=== PATIENT | female | born 1995 | race Caucasian/White ===

== ENCOUNTER 2017-04-08 09:57 | Day surgery (SDC) | payer BC ==
[2017-04-05 14:31] VITALS: BMI 26.9
[2017-04-08 10:28] LABS: #Eosinphils 0.1 thou/uL (0.0-0.7); #Lymphocytes 2.6 thou/uL (1.20-3.40); #Monocytes 0.5 thou/uL (0.11-0.59); #Neutrophils 3.2 thou/uL (1.40-6.50); %Basophils 0.7 % (0.0-1.0); %Eosinophils 2.3 % (0.0-10.0); %Lymphocytes 40.3 % (21.0-51.0); Hematocrit 46.8 % (36.0-47.0); Mean Platelet Volume 7.7 fL (7.4-10.4); Red Blood Cell (RBC) Count 5.11 mill/uL (4.20-5.40); White Blood Cell (WBC) Count 6.5 thou/uL (4.8-10.8)
[2017-04-08] MEDS ORDERED: Midazolam HCl 2 mg/2 ml Vial ONE (11:40)
[2017-04-08] MEDS ORDERED: Fentanyl 100 MCG/2 ML VIAL ONE ×4 (11:40→13:27)
[2017-04-08] MEDS ORDERED: Propofol 200 MG/20 ML VIAL ONE (11:49)
[2017-04-08] MEDS ORDERED: Dexamethasone 20 MG/5 ML VIAL ONE (11:49)
[2017-04-08] MEDS ORDERED: Lidocaine 1% PF 5 ML VIAL ONE (11:49)
[2017-04-08] MEDS ORDERED: Ketorolac Tromethamine 30 MG/ML VIAL ONE (11:49)
[2017-04-08] MEDS ORDERED: Ondansetron HCl/PF 4 MG/2 ML Vial ONE (11:49)
[2017-04-08] MEDS ORDERED: Bacitracin Zinc Ointment 30 gm TUBE ONE (12:30)
--- NOTE | 2017-04-08 14:15 | OP ---
PREOPERATIVE DIAGNOSIS: Persistent right Bartholin cyst, requiring multiple incision and drainage a nd Word catheter placement with failure. POSTOPERATIVE DIAGNOSIS: Persistent right Bartholin cyst, requiring multiple incision and drainage and Word catheter placement with failure. PROCEDURE: Right Bartholin cyst marsupialization. SURGEON: Marylou Burt D.O. COMPLICATIONS: None. ESTIMATED BLOOD LOSS: Minimal. IV FLUIDS: 1500 mL. URINE OUTPUT: 100 mL. FINDINGS: A persistent right Bartholin cyst noninflamed and infected at this point from recent inci fox and drainage and Word catheter placement. INDICATIONS FOR THE PROCEDURE: Ms. Jennifer Hernández is a 21-year-old G0, who presented to clinic with c omplaints of a right Bartholin cyst that was in fact an abscess. The cyst spontaneously drained and Word catheter was placed approximately 1-1/2 weeks ago. The patient had a history of 6 Bartholin a bscesses within the past year and has failed Word catheter placement previously. The patient was co unseled on treatment options and a Bartholin cyst marsupialization was recommended, the patient was amenable to the procedure. DESCRIPTION OF PROCEDURE: The patient was brought to the operating room. She was placed under gene ral anesthesia using LMA. The patient was placed in dorsal lithotomy position. She was prepped and draped in the sterile fashion. An official timeout was performed. A right Bartholin cyst was iden tified. There is still incision site from her prior incision and drainage. The incision was extend ed parallel to the hymenal ring. Just lateral to the hymenal ring, a skin incision was made superfi cially using the scalpel allowing identification of planes of the skin and the cyst wall. The cyst wall was then extended superiorly and inferiorly using Hunt scissors. The skin was sutured to the B artholin cyst wall in a circumferential fashion around the incision in its entirety to allow for sec ondary healing and hemostasis was achieved. The patient was then placed back in supine position. S he was extubated without difficulty. All counts were correct x2. The patient was transferred to [facility] PACU in hemodynamically stable condition.
== END 2017-04-08 14:30 | disposition home or self-care (01) ==
LOC: SDC 09:57
PROVIDERS: ATTEND Obstetrics & Gynecology
PROC: 0U9L0ZZ Drainage of Vestibular Gland, Open Approach (ICD-10-PCS; principal; 2017-04-08)
DX: N75.0 Cyst of Bartholin's gland (principal); Z79.3 Long term (current) use of hormonal contraceptives; Z79.2 Long term (current) use of antibiotics; Z88.8 Allergy status to other drugs, medicaments and biological substances; Z90.89 Acquired absence of other organs; Z98.818 Other dental procedure status; Z98.890 Other specified postprocedural states
CPT/HCPCS: 36415; 84702; 84703; 85025; 86850; 86900; 86901; J1100; J1885; J2001; J2250; J2405; J2704; J3010